=== PATIENT | male | born 1955 | race Caucasian/White ===

== ENCOUNTER 2018-07-19 11:22 | Emergency (ER) | payer BC, OTHER ==
--- NOTE | 2018-07-19 12:12 | ED ---
General Adult HPI - General Chief complaint: Extremity Injury, Lower Stated complaint: left hip pain Source: patient Mode of arrival: wheelchair Limitations: no limitations - History of Present Illness Initial comments: Dictation was produced using [employer] dictation software. please excuse any grammatical, word or spelling errors. Chief Complaint: 62 male with past medical history dyslipidemia, hypertension, back surgery presents with left hip pain. History of Present Illness: This 62-year-old male who complains of one-week history of left hip pain. Patient states with his head pain he is complaining of left lateral thigh paresthesias. Patient denies any numbness to that area and significant for light touch over this different. Patient has any back pain or urinary retention. No saddle anesthesia. Patient was told by his friends to follow-up with orthostatic surgery for evaluation. Patient states he is able to ambulate however with a limp. Patient does complain of severe symptoms with movement. No constitutional symptoms. The ROS documented in this emergency department record has been reviewed and confirmed by me. Those systems with pertinent positive or negative responses have been documented in the HPI. All other systems are other negative and/or noncontributory. - Related Data Home Medications Medication Instructions Recorded Confirmed Atorvastatin [Lipitor] 20 mg PO DAILY 02/13/14 07/19/18 amLODIPine BESYLATE/BENAZEPRIL 1 each PO DAILY 02/13/14 07/19/18 [Lotrel 10-20 mg Capsule] Ascorbic Acid [Vitamin C] 500 mg PO DAILY 07/19/18 07/19/18 Cyanocobalamin (Vitamin B-12) 1,000 mcg PO DAILY 07/19/18 07/19/18 [Vitamin B-12] Ginkgo Biloba 500 mg PO DAILY 07/19/18 07/19/18 Ibuprofen [Motrin] 800 mg PO BID 07/19/18 07/19/18 Multivitamins, Thera [Multivitamin 1 tab PO DAILY 07/19/18 07/19/18 (formulary)] [place]-3 Fatty Acids/Fish Oil [Fish 1 cap PO DAILY 07/19/18 07/19/18 Oil 1,000 mg Softgel] Ubidecarenone [Co Q-10] 100 mg PO DAILY 07/19/18 07/19/18 Previous Rx's Medication Instructions Recorded traMADol HCl [Ultram] 50 mg PO Q4HR PRN 3 Days #18 tab 07/19/18 Allergies Allergy/AdvReac Type Severity Reaction Status Date / Time codeine Allergy Unknown Uncoded 07/19/18 11:34 Review of Systems ROS Statement: Those systems with pertinent positive or pertinent negative responses have been documented in the HPI. ROS Other: All systems not noted in ROS Statement are negative. Past Medical History Past Medical History: Hyperlipidemia, Hypertension History of Any Multi-Drug Resistant Organisms: None Reported Past Surgical History: Back Surgery Additional Past Surgical History / Comment(s): back surgeryx2, Past Psychological History: No Psychological Hx Reported Smoking Status: Never smoker Past Alcohol Use History: Daily Past Drug Use History: None Reported General Exam - General Exam Comments Initial Comments: PHYSICAL EXAM: General Impression: Alert and oriented x3, not in acute distress HEENT: Normocephalic atraumatic, extra-ocular movements intact, pupils equal and reactive to light bilaterally, mucous membranes moist. Cardiovascular: Heart regular rate and rhythm, S1&S2 audible, no murmurs, rubs or gallops Chest: Lungs clear to auscultation bilaterally, no rhonchi, no wheeze, no rales Abdomen: Bowel sounds present, abdomen soft, non-tender, non-distended, no organomegaly Musculoskeletal: Pulses present and equal in all extremities, no peripheral edema Motor: Power 5/5 bilaterally, no focal deficits noted Neurological: CN II-XII grossly intact, no focal motor or sensory deficits noted Skin: Intact with no visualized rashes Psych: Normal affect and mood Gait: Left limp Limitations: no limitations Course Vital Signs 07/19/18 11:31 Temperature 98.3 F Pulse Rate 86 Respiratory 20 Rate Blood Pressure 144/82 O2 Sat by Pulse 100 Oximetry Medical Decision Making - Medical Decision Making ED course: 62-year-old male presents with left hip pain times one week. Vital signs upon arrival are within acceptable limits. No clinical suspicion of septic arthritis.X-ray was obtained showing bilateral hip arthropathy that was moderate in nature. Patient notified of these results. He is told to follow up with orthopedic surgery. Patient told to take [id number] pain medications for symptom control. Discussed with patient that he may need surgical intervention versus physical therapy. She otherwise told to rest the joint patient weightbearing as tolerated. Prescription provided for tramadol. Patient has appointment with orthopedic surgery next week. Disposition Clinical Impression: Hip pain, left Disposition: HOME SELF-CARE Condition: Good Instructions: Hip Pain (ED) Prescriptions: traMADol HCl [Ultram] 50 mg PO Q4HR PRN 3 Days #18 tab PRN Reason: Pain Is patient prescribed a controlled substance at d/c from ED?: No Referrals: Humble Kincaid MD [Primary Care Provider] - 1-2 days Time of Disposition: 13:19
--- NOTE | 2018-07-19 12:49 | XR ---
EXAMINATION TYPE: XR Hip LT and AP Pelvis DATE OF EXAM: 07/19/2018 COMPARISON: NONE HISTORY: Left hip pain and weakness for one week TECHNIQUE: A single AP view of the pelvis is obtained. Two views of the left hip are obtained. FINDINGS: There is no acute fracture/dislocation evident in the pelvis. The hip and sacroiliac join ts demonstrate degenerative changes. Moderate degenerative changes of the femoral acetabular joints a re demonstrated as acetabular roof sclerosis, joint space narrowing and small marginal osteophytes. P ossible old avulsion fracture of the right adductor musculature is seen of the right ischial tuberosi ty. The overlying soft tissue appears unremarkable. Two views of left hip show no acute fracture or dislocation. No focal lytic or sclerotic lesion seen in the proximal left femur. The overlying soft tissue is unremarkable. Post surgical changes of th e lumbosacral spine are present. IMPRESSION: There is no acute fracture or dislocation in the pelvis or left hip. Moderate bilateral femoral acetabular arthropathy.
[2018-07-19 13:38] VITALS: BP 148/91; PULSE 77; RESP 18; TEMP 98.1
== END 2018-07-19 13:36 | disposition home or self-care (01) ==
LOC: EC 11:22
DX: M16.0 Bilateral primary osteoarthritis of hip (principal); R51 Headache; E78.5 Hyperlipidemia, unspecified; I10 Essential (primary) hypertension; Z79.1 Long term (current) use of non-steroidal anti-inflammatories (NSAID); Z79.899 Other long term (current) drug therapy; Z88.5 Allergy status to narcotic agent
CPT/HCPCS: 73502; 99283

== ENCOUNTER 2020-04-15 03:15 | Emergency (ER) | payer BC, OTHER ==
[2020-04-15 03:25] VITALS: RESP 18; TEMP 98.2
[2020-04-15] MEDS ORDERED: HYDROcodone/APAP 5-325MG 1 EACH TAB PO STA (04:08)
[2020-04-15] MEDS ORDERED: IBUPROFEN 400 MG TAB PO STA (04:08)
[2020-04-15] MEDS ORDERED: predniSONE 20 MG TAB PO STA (04:08)
--- NOTE | 2020-04-15 04:48 | ED ---
Back Pain [facility] - General Chief Complaint: Back Pain/Injury Stated Complaint: back pain Time Seen by Provider: 04/15/20 03:31 Source: patient Limitations: no limitations - History of Present Illness Initial Comments: This patient is a 64-year-old man who presents to have some symptom relief from back pain. The patient states that approximate 1-2 weeks ago he had been lifting some heavy objects and twisting when he felt pain in his low back. He states it had reminded him of a previous herniated disc. He had gone to see his primary physician and had been given tramadol and a steroid shot. The patient states that when the symptoms came on tonight he tried the tramadol but it was not providing much relief at all. Patient does indicate the low back and states that the pain seems to go towards the buttocks on both sides. He is not having leg weakness or numbness. No change in urination or bowel movements. No saddle anesthesia. Patient is scheduled to have an MRI at the end of this month. MD Complaint: back pain, back injury -: week(s) Similar Symptoms Previously: Yes Place: home Radiation: buttocks Severity: severe Quality: aching Consistency: constant Improves With: none Worsens With: movement Context: while lifting, turning/twisting Associated Symptoms: denies other symptoms - Related Data Home Medications Medication Instructions Recorded Confirmed Atorvastatin [Lipitor] 20 mg PO DAILY 02/13/14 07/19/18 amLODIPine BESYLATE/BENAZEPRIL 1 each PO DAILY 02/13/14 07/19/18 [Lotrel 10-20 mg Capsule] Ascorbic Acid [Vitamin C] 500 mg PO DAILY 07/19/18 07/19/18 Cyanocobalamin (Vitamin B-12) 1,000 mcg PO DAILY 07/19/18 07/19/18 [Vitamin B-12] Ginkgo Biloba 500 mg PO DAILY 07/19/18 07/19/18 Ibuprofen [Motrin] 800 mg PO BID 07/19/18 07/19/18 Multivitamins, Thera [Multivitamin 1 tab PO DAILY 07/19/18 07/19/18 (formulary)] [place]-3 Fatty Acids/Fish Oil [Fish 1 cap PO DAILY 07/19/18 07/19/18 Oil 1,000 mg Softgel] Ubidecarenone [Co Q-10] 100 mg PO DAILY 07/19/18 07/19/18 Previous Rx's Medication Instructions Recorded traMADol HCl [Ultram] 50 mg PO Q4HR PRN 3 Days #18 tab 07/19/18 Allergies Allergy/AdvReac Type Severity Reaction Status Date / Time codeine Allergy Unknown Uncoded 04/15/20 03:25 Review of Systems ROS Statement: Those systems with pertinent positive or pertinent negative responses have been documented in the HPI. ROS Other: All systems not noted in ROS Statement are negative. Constitutional: Denies: fever, chills, weakness Respiratory: Denies: cough, dyspnea Cardiovascular: Denies: chest pain, edema Gastrointestinal: Denies: abdominal pain, vomiting, diarrhea, constipation Genitourinary: Denies: dysuria, hematuria, testicular pain Musculoskeletal: Reports: as per HPI, back pain Skin: Denies: rash Neurological: Denies: headache, weakness, numbness, paresthesias Past Medical History Past Medical History: Hyperlipidemia, Hypertension History of Any Multi-Drug Resistant Organisms: None Reported Past Surgical History: Back Surgery Additional Past Surgical History / Comment(s): back surgeryx2, Past Psychological History: No Psychological Hx Reported Smoking Status: Never smoker Past Alcohol Use History: Daily Past Drug Use History: None Reported General Exam Limitations: no limitations General appearance: alert, in no apparent distress Neck exam: Present: normal inspection, full ROM Respiratory exam: Present: normal lung sounds bilaterally. Absent: respiratory distress, wheezes, rales, rhonchi, stridor Cardiovascular Exam: Present: regular rate, normal rhythm, normal heart sounds. Absent: systolic murmur, diastolic murmur, rubs, gallop GI/Abdominal exam: Present: soft. Absent: distended, tenderness, guarding, rebound, rigid, mass, pulsatile mass Back exam: Present: normal inspection. Absent: CVA tenderness (R), CVA tenderness (L), paraspinal tenderness, vertebral tenderness Neurological exam: Present: alert, reflexes normal. Absent: motor sensory deficit Skin exam: Present: warm, dry, intact, normal color. Absent: rash Course Vital Signs 04/15/20 03:20 Temperature 98.2 F Pulse Rate 76 Respiratory 18 Rate Blood Pressure 136/93 O2 Sat by Pulse 97 Oximetry Disposition Clinical Impression: Lumbar back pain Disposition: HOME SELF-CARE Condition: Fair Instructions (If sedation given, give patient instructions): Acute Low Back Pain (ED) Additional Instructions: As we discussed, if there is any change in your bladder or bowel function, if there is any weakness of the lower extremities or loss of sensation, return immediately to be admitted to have MRI. Is patient prescribed a controlled substance at d/c from ED?: No Referrals: Humble Kincaid MD [Primary Care Provider] - 1-2 days
[2020-04-15 05:01] VITALS: BP 130/84; PULSE 78
== END 2020-04-15 05:01 | disposition home or self-care (01) ==
LOC: EC 03:15
DX: S39.92XA Unspecified injury of lower back, initial encounter (principal); E78.5 Hyperlipidemia, unspecified; I10 Essential (primary) hypertension; Z79.1 Long term (current) use of non-steroidal anti-inflammatories (NSAID); Z79.899 Other long term (current) drug therapy; Z88.5 Allergy status to narcotic agent; X50.1XXA Overexertion from prolonged static or awkward postures, initial encounter; X50.0XXA Overexertion from strenuous movement or load, initial encounter
CPT/HCPCS: 99283; J7512

== ENCOUNTER → 2023-04-08 | Outpatient (CLI) | payer OTHER ==
--- NOTE | 2023-04-10 17:14 | CT ---
INDICATION: Patient age:Male; 67 years old; Reason for study: dyspnea; PHH. COMPARISON: Chest radiograph 04/01/2023 TECHNIQUE: Multiple thin axial images were obtained through the chest at selected intervals. Prone and supine in spiratory along with supine expiratory images were submitted for review. Please note that due to inte rval acquisition images as defined by high-resolution CT protocol the entire lung parenchyma is not e valuated, therefore small nodular densities may not be visualized. Evaluation of vascular structures , viscera and lymphatics is limited due to lack of intravenous contrast administration. One or more C T dose reduction strategies were utilized during this examination. Total DLP 1064.80 mGycm. FINDINGS: LUNGS: There is no evidence of interstitial thickening, significant groundglass opacity, honeycombing or architectural distortion in the lungs. No bronchiectasis. Mild expiratory air trapping. No acute area of infiltrative or consolidative change. Left upper lobe anterior calcified granuloma. Right upp er lobe 3 mm pulmonary nodule (series 4, 81). Right midlung 4 millimeter nodule along the right minor fissure (series 4, image 145). Punctate calcified granuloma within the posterior aspect of the right upper lobe. LARGE AIRWAYS: Central airways are patent. No dynamic airway collapse on expiratory imaging. PLEURA: No pleural effusion or thickening. HEART AND PERICARDIUM: Heart is normal in size. There is no pericardial effusion. MEDIASTINUM AND BELTRAN: No mediastinal or hilar lymphadenopathy or soft tissue mass. VESSELS: The thoracic aorta is normal in course and caliber. CHEST WALL AND DIAPHRAGM: Normal. LOWER NECK: Normal. UPPER ABDOMEN: Unremarkable. MUSCULOSKELETAL: No acute fracture. Cervical and lumbar fusion hardware partially visualized. IMPRESSION: 1. No CT evidence for interstitial lung disease. 2. Couple of scattered pulmonary nodules measuring up to 4 mm. In a low-risk patient, no follow-up is recommended. In a high-risk patient consider optional CT chest in 12 months.
== END | disposition home or self-care (01) ==
LOC: RADCTMAIN 16:44
PROVIDERS: ATTEND Internal Medicine Critical Care Medicine
DX: R91.8 Other nonspecific abnormal finding of lung field (principal); R06.00 Dyspnea, unspecified
CPT/HCPCS: 71250

== ENCOUNTER 2023-04-15 11:05 | Day surgery (SDC) | payer OTHER ==
[2023-04-14 11:09] VITALS: BMI 27.0
[2023-04-15] MEDS ORDERED: LACTATED RINGERS 1,000 ML IV ONE (11:38)
[2023-04-15] MEDS ORDERED: LACTATED RINGERS 1,000 ML IV SCH (11:43)
[2023-04-15 11:52] VITALS: RESP 16; TEMP 97.3
[2023-04-15] MEDS ORDERED: PROPOFOL 10 MG/ML 20 ML VIAL IV ONE (12:45)
--- NOTE | 2023-04-15 13:03 | P.PCN ---
Date of Procedure: 04/15/23 Procedure(s) Performed: BRIEF HISTORY: Patient is a 67-year-old pleasant white male scheduled for an elective colonoscopy as a part of screening for colon cancer. PROCEDURE PERFORMED: Colonoscopy with biopsy. PREOPERATIVE DIAGNOSIS: Screening for colon cancer. IV sedation per Anesthesia. PROCEDURE: After informed consent was obtained, the patient, was brought into the endoscopy unit. IV sedation was administered by Anesthesia under continuous monitoring. Digital rectal examination was normal. Initially the Olympus CF-160 flexible video colonoscope was then inserted in the rectum, gradually advanced into the cecum without any difficulty. Careful examination was performed as the scope was gradually being withdrawn. Ileocecal valve and the appendiceal orifice were visualized and appeared normal. Prep was excellent. Mucosa of the cecum, ascending colon, transverse colon, appeared normal. In the descending colon there was a 3 minute a polyp that was removed by cold biopsy. In the sigmoid: There was another 3 mm polyp that was removed by cold biopsy. Scattered left sided diverticulosis seen. Rest of the descending colon, sigmoid colon, and rectum appeared normal. Retroflexion was performed in the rectum and no lesions were seen. The patient tolerated the procedure well. IMPRESSION: 3 mm descending colon polyp status post cold biopsy 3 mm; sigmoid polyp status post cold biopsy Scattered sigmoid diverticula RECOMMENDATIONS: Findings of this examination were discussed with the patient as well as his family. He was advised to follow with the biopsy results and if the biopsy result adenoma he can have a repeat colonoscopy in 5 years
[2023-04-15 13:32] VITALS: BP 144/84; PULSE 70
== END 2023-04-15 13:51 | disposition home or self-care (01) ==
LOC: ORWHC2ENDO 11:05
PROVIDERS: ATTEND Internal Medicine Gastroenterology
DX: Z12.11 Encounter for screening for malignant neoplasm of colon (principal); D12.4 Benign neoplasm of descending colon; D12.5 Benign neoplasm of sigmoid colon; K57.30 Diverticulosis of large intestine without perforation or abscess without bleeding; I10 Essential (primary) hypertension; E78.5 Hyperlipidemia, unspecified; Z87.891 Personal history of nicotine dependence; Z79.899 Other long term (current) drug therapy
CPT/HCPCS: 88305; 45380; J2704